=== PATIENT | male | born 1940 | race Caucasian/White ===

== ENCOUNTER 2020-11-21 09:03 | Outpatient (CLI) | payer MEDICARE ==
[~2020-11-21 09:03] MED LIST: ASCO100018 PO; ASPI-496 PO; B&C/1TAB2 PO; CARV3.1212 PO; CHOL10003 PO; CITA20TA6 PO; CYAN2000 PO; DOXY100T23 PO; FISH400C3 PO; FURO-93 PO; HYDR453.4 TP; LANS15CA5 PO; LOSA50TA14 PO; MECL-101 PO; METF1000 PO; MULT1TAB9 PO; PIOG15TA69 PO; POTA10TA5 PO; PRAV80TA2 PO; VITA1TAB38 PO; VITA400C43 PO; ZINC50TA10 PO
== END 2020-11-21 23:59 | disposition home or self-care (01) ==
LOC: WOUND 09:03
PROVIDERS: ATTEND Internal Medicine
DX: I87.331 Chronic venous hypertension (idiopathic) with ulcer and inflammation of right lower extremity (principal); E11.622 Type 2 diabetes mellitus with other skin ulcer; L97.212 Non-pressure chronic ulcer of right calf with fat layer exposed; L97.312 Non-pressure chronic ulcer of right ankle with fat layer exposed; L97.811 Non-pressure chronic ulcer of other part of right lower leg limited to breakdown of skin; I87.312 Chronic venous hypertension (idiopathic) with ulcer of left lower extremity; L97.821 Non-pressure chronic ulcer of other part of left lower leg limited to breakdown of skin; E11.22 Type 2 diabetes mellitus with diabetic chronic kidney disease; I13.0 Hypertensive heart and chronic kidney disease with heart failure and stage 1 through stage 4 chronic kidney disease, or unspecified chronic kidney disease; I50.30 Unspecified diastolic (congestive) heart failure; N18.9 Chronic kidney disease, unspecified; M19.90 Unspecified osteoarthritis, unspecified site; D61.818 Other pancytopenia; D53.9 Nutritional anemia, unspecified; N40.0 Benign prostatic hyperplasia without lower urinary tract symptoms; G43.909 Migraine, unspecified, not intractable, without status migrainosus; E66.01 Morbid (severe) obesity due to excess calories; F32.9 Major depressive disorder, single episode, unspecified; Z68.38 Body mass index [BMI] 38.0-38.9, adult; Z79.899 Other long term (current) drug therapy; Z97.4 Presence of external hearing-aid; Z98.1 Arthrodesis status; Z96.649 Presence of unspecified artificial hip joint; Z96.659 Presence of unspecified artificial knee joint
CPT/HCPCS: 29581; 97597

== ENCOUNTER 2020-11-28 10:03 | Outpatient (CLI) | payer MEDICARE | END 2020-11-28 23:59 | disposition home or self-care (01) | LOC: WOUND 10:03 | PROVIDERS: ATTEND Internal Medicine | DX: I87.331 Chronic venous hypertension (idiopathic) with ulcer and inflammation of right lower extremity (principal); E11.622 Type 2 diabetes mellitus with other skin ulcer; L97.312 Non-pressure chronic ulcer of right ankle with fat layer exposed; L97.811 Non-pressure chronic ulcer of other part of right lower leg limited to breakdown of skin; L97.212 Non-pressure chronic ulcer of right calf with fat layer exposed; I87.312 Chronic venous hypertension (idiopathic) with ulcer of left lower extremity; L97.821 Non-pressure chronic ulcer of other part of left lower leg limited to breakdown of skin; E11.22 Type 2 diabetes mellitus with diabetic chronic kidney disease; I13.0 Hypertensive heart and chronic kidney disease with heart failure and stage 1 through stage 4 chronic kidney disease, or unspecified chronic kidney disease; I50.30 Unspecified diastolic (congestive) heart failure; N18.9 Chronic kidney disease, unspecified; M19.90 Unspecified osteoarthritis, unspecified site; D61.818 Other pancytopenia; D53.9 Nutritional anemia, unspecified; N40.0 Benign prostatic hyperplasia without lower urinary tract symptoms; G43.909 Migraine, unspecified, not intractable, without status migrainosus; E66.01 Morbid (severe) obesity due to excess calories; F32.9 Major depressive disorder, single episode, unspecified; Z68.38 Body mass index [BMI] 38.0-38.9, adult; Z79.899 Other long term (current) drug therapy; Z97.4 Presence of external hearing-aid; Z98.1 Arthrodesis status; Z96.649 Presence of unspecified artificial hip joint; Z96.659 Presence of unspecified artificial knee joint | CPT/HCPCS: 97597 ==

== ENCOUNTER → 2020-12-05 | Outpatient (CLI) | payer MEDICARE | END | disposition home or self-care (01) | LOC: WOUND 11:10 | PROVIDERS: ATTEND Internal Medicine | DX: I87.333 Chronic venous hypertension (idiopathic) with ulcer and inflammation of bilateral lower extremity (principal); E11.622 Type 2 diabetes mellitus with other skin ulcer; L97.312 Non-pressure chronic ulcer of right ankle with fat layer exposed; L97.212 Non-pressure chronic ulcer of right calf with fat layer exposed; L97.821 Non-pressure chronic ulcer of other part of left lower leg limited to breakdown of skin; E11.22 Type 2 diabetes mellitus with diabetic chronic kidney disease; I13.0 Hypertensive heart and chronic kidney disease with heart failure and stage 1 through stage 4 chronic kidney disease, or unspecified chronic kidney disease; I50.30 Unspecified diastolic (congestive) heart failure; N18.9 Chronic kidney disease, unspecified; D61.818 Other pancytopenia; D53.9 Nutritional anemia, unspecified; N40.0 Benign prostatic hyperplasia without lower urinary tract symptoms; G43.909 Migraine, unspecified, not intractable, without status migrainosus; E66.01 Morbid (severe) obesity due to excess calories; F32.9 Major depressive disorder, single episode, unspecified; Z68.38 Body mass index [BMI] 38.0-38.9, adult; Z79.899 Other long term (current) drug therapy; Z97.4 Presence of external hearing-aid; Z98.1 Arthrodesis status; Z96.649 Presence of unspecified artificial hip joint; Z96.659 Presence of unspecified artificial knee joint | CPT/HCPCS: 97597 ==

== ENCOUNTER 2020-12-12 09:19 | Outpatient (CLI) | payer MEDICARE | END 2020-12-12 23:59 | disposition home or self-care (01) | LOC: WOUND 09:19 | PROVIDERS: ATTEND Internal Medicine | DX: I87.333 Chronic venous hypertension (idiopathic) with ulcer and inflammation of bilateral lower extremity (principal); E11.622 Type 2 diabetes mellitus with other skin ulcer; L97.312 Non-pressure chronic ulcer of right ankle with fat layer exposed; L97.212 Non-pressure chronic ulcer of right calf with fat layer exposed; L97.828 Non-pressure chronic ulcer of other part of left lower leg with other specified severity; E11.22 Type 2 diabetes mellitus with diabetic chronic kidney disease; I13.0 Hypertensive heart and chronic kidney disease with heart failure and stage 1 through stage 4 chronic kidney disease, or unspecified chronic kidney disease; I50.30 Unspecified diastolic (congestive) heart failure; N18.9 Chronic kidney disease, unspecified; D61.818 Other pancytopenia; D53.9 Nutritional anemia, unspecified; N40.0 Benign prostatic hyperplasia without lower urinary tract symptoms; G43.909 Migraine, unspecified, not intractable, without status migrainosus; E66.01 Morbid (severe) obesity due to excess calories; F32.9 Major depressive disorder, single episode, unspecified; Z68.38 Body mass index [BMI] 38.0-38.9, adult; Z79.899 Other long term (current) drug therapy; Z97.4 Presence of external hearing-aid; Z98.1 Arthrodesis status; Z96.649 Presence of unspecified artificial hip joint; Z96.659 Presence of unspecified artificial knee joint | CPT/HCPCS: G0463 ==

== ENCOUNTER 2021-01-10 11:48 | Inpatient (IN) | payer MEDICARE ==
[~2021-01-10] VITALS: Ht 185.4 cm; Wt 135.9 kg
--- NOTE | 2021-01-10 12:05 | NUR ---
BIB EMS FROM HOME FOR ATRAUMATIC ACUTE ON CHRONIC NECK AND BACK PAIN. HX CERVICAL AND LUMBAR FUSION. DAUGHTER REPORTS WORSENING S/S AFTER PT RECEIVED SECOND MODERNA COVID VACCINE IN NOVEMBER AND C/O DENTAL PAIN WITH MILD FEVER AT HOME. AFEBRILE IN ED. VSS. AWAITING ERP EVAL.
[2021-01-10 12:33] LABS: ALANINE AMINOTRANSFERASE 26 U/L (12-78); ALBUMIN 2.7 g/dL (3.4-5.0); ANION GAP 10 mmol/L (5-15); CHLORIDE 104 mmol/L (98-107); CREATININE 2.49 mg/dL (0.7-1.3)
[2021-01-10 12:35] LABS: ALKALINE PHOSPHATASE 136 U/L (45-117); BILIRUBIN,TOTAL 0.7 mg/dL (0.2-1.0); TOTAL PROTEIN 6.7 g/dL (6.4-8.2)
[2021-01-10 12:37] LABS: BASOPHILS % (AUTO) 1 % (0-1); EOSINOPHILS % (AUTO) 0 % (1-7); LYMPHOCYTES % (AUTO) 13 % (22-44); MEAN CORPUSCULAR HEMOGLOBIN 36.5 pg (27.5-34.5); MEAN PLATELET VOLUME 7.6 fL (7.4-10.4); MONOCYTES % (AUTO) 19 % (2-9); NEUTROPHILS % (AUTO) 67 % (42-75); RED BLOOD COUNT 2.33 x10^6/uL (4.38-5.82); RED CELL DISTRIBUTION WIDTH 16.2 % (9.4-14.8)
[2021-01-10 12:54] LABS: PLATELET COUNT 67 x10^3/uL (130-400)
[2021-01-10 12:55] LABS: ANISOCYTOSIS 1+; MD MORPH REVIEW ONLY
[2021-01-10 12:57] LABS: <PLATELET ESTIMATE> DECREASED; <PLT MORPHOLOGY> NORMAL PLT MORPH; POLYCHROMASIA 1+; STOMATOCYTES 1+
[2021-01-10] MEDS ORDERED: SODIUM CHLORIDE FLUSH 10ML SYR IVF ONE (13:00)
[2021-01-10] MEDS ORDERED: SODIUM CHLORIDE 0.9% 1,000ML IVBOLUS ONE (13:00)
--- NOTE | 2021-01-10 13:12 | NUR ---
TASK RN: IV ESTABLISHED AND FLUIDS INFUSING. PA AT BEDSIDE OBTAINING HEMOCULT SAMPLE.
--- NOTE | 2021-01-10 13:50 | NUR ---
PT AWARE OF NEED FOR UA. STATES HE IS UNABLE TO PROVIDE. IVF CONTINUES TO INFUSE
[2021-01-10] MEDS ORDERED: SUMA50TA4 PO (13:54)
[2021-01-10] MEDS ORDERED: TRAM50TA2 PO (13:54)
--- NOTE | 2021-01-10 14:27 | NUR ---
UA COLLECTED AND SENT TO LAB
[2021-01-10 14:42] LABS: MICROSCOPIC AUTO
--- NOTE | 2021-01-10 15:28 | NUR ---
REPORT TO EDER CRAWFORD
[2021-01-10] MEDS ORDERED: SODIUM CHLORIDE FLUSH 10ML SYR IVF PRN (15:30)
[2021-01-10] MEDS ORDERED: HYDROCORTISONE OINT 2.5%, 20GM TP PRN (16:30)
[2021-01-10] MEDS ORDERED: THIAMINE 200 MG in SODIUM CHLORIDE 0.9% 50 ML IV ONE (16:30)
[2021-01-10] MEDS ORDERED: PHARMACY MAY ADJ FOR RENAL FX MC PRN (16:30)
--- NOTE | 2021-01-10 16:41 | NUR ---
DAUGHTER, FEBRUARY, LEAVING AT THIS TIME. PHONE NUMBER [phone] TO CONTACT
--- NOTE | 2021-01-10 16:44 | NUR ---
PT RESTING, VSS. WAITING FOR ADMIT BED
--- NOTE | 2021-01-10 16:47 | NUR ---
PT IN IMAGING
[2021-01-10 17:37] LABS: HCT (SEDRATE) 26.2 % (39.2-51.8)
--- NOTE | 2021-01-10 18:00 | NUR ---
REPORT TO [facility]. PT READY FOR TRANSFER
[2021-01-10 18:14] LABS: C-REACTIVE PROTEIN, QUANT 8.1 mg/dL (0.02-0.49)
--- NOTE | 2021-01-10 18:46 | NUR ---
pt tofloor via tech on oxygen
[2021-01-10 20:02] VITALS: BP 124/70
[2021-01-10] MEDS: INSULIN LISPRO 100 UNITS/ML, PEN SQ-INSULIN SCH (20:12)
[2021-01-10] MEDS: CARVEDILOL 3.125 MG TABLET PO SCH (20:17)
[2021-01-10] MEDS: GABAPENTIN 250 MG/5 ML ORAL SOL PO PRN (20:23)
[2021-01-10] MEDS: NYSTATIN TOPICAL POWDER 15GM TP SCH ×2 (20:24→20:38)
[2021-01-10] MEDS: AMPICILLIN/SULBACTAM 3 GM in SODIUM CHLORIDE 0.9% 100 ML IV SCH (20:25)
[2021-01-10 21:00] VITALS: BP 128/65
[2021-01-10 22:33] VITALS: BP 129/70
[2021-01-11 01:04] VITALS: BP 117/67
[2021-01-11] MEDS: CARVEDILOL 3.125 MG TABLET PO SCH ×2 (05:48→18:29)
[2021-01-11] MEDS: NYSTATIN TOPICAL POWDER 15GM TP SCH ×4 (05:48→21:21)
[2021-01-11 06:27] VITALS: BP 146/76
[2021-01-11] MEDS: INSULIN LISPRO 100 UNITS/ML, PEN SQ-INSULIN SCH ×4 (08:00→20:05)
[2021-01-11] MEDS: AMPICILLIN/SULBACTAM 3 GM in SODIUM CHLORIDE 0.9% 100 ML IV SCH ×2 (09:24→21:21)
[2021-01-11] MEDS: CITALOPRAM 20 MG TABLET PO SCH (09:25)
[2021-01-11] MEDS: CHOLECALCIFEROL 5,000u TAB PO SCH (09:25)
[2021-01-11] MEDS: FUROSEMIDE 20 MG/2 ML IV SCH (09:25)
[2021-01-11] MEDS: MULTIVITAMINS WITH IRON TABLET PO SCH (09:25)
[2021-01-11 10:31] LABS: ABSOLUTE RETICS # 0.041 x10^6/uL (0.5-1.5); RED BLOOD COUNT 2.26 x10^6/uL (4.38-5.82); RETICULOCYTE COUNT % 1.82 % (0.5-1.5)
[2021-01-11 10:38] LABS: % IRON SATURATION 14 % (20-55); IRON LEVEL 39 mcg/dL (65-175); TOTAL IRON BINDING CAPACITY 282 mcg/dL (250-450)
[2021-01-11 11:51] VITALS: BP 143/80
[2021-01-11 18:45] VITALS: BP 132/77
[2021-01-12 02:09] VITALS: BP 147/80
[2021-01-12 05:35] VITALS: BP 130/77
[2021-01-12] MEDS: NYSTATIN TOPICAL POWDER 15GM TP SCH ×4 (05:44→20:34)
[2021-01-12] MEDS: LEVOTHYROXINE 100 MCG TABLET PO SCH (05:44)
[2021-01-12] MEDS: CARVEDILOL 3.125 MG TABLET PO SCH ×2 (05:44→17:59)
[2021-01-12 07:00] VITALS: BP 109/58
[2021-01-12] MEDS: INSULIN LISPRO 100 UNITS/ML, PEN SQ-INSULIN SCH ×4 (07:00→21:00)
[2021-01-12 09:10] VITALS: BP 152/89
[2021-01-12] MEDS: FUROSEMIDE 20 MG/2 ML IV SCH (09:31)
[2021-01-12] MEDS: CHOLECALCIFEROL 5,000u TAB PO SCH (09:32)
[2021-01-12] MEDS: IRON SUCROSE COMPLEX 100MG/5ML IV SCH (09:32)
[2021-01-12] MEDS: CITALOPRAM 20 MG TABLET PO SCH (09:32)
[2021-01-12] MEDS: MULTIVITAMINS WITH IRON TABLET PO SCH (09:32)
[2021-01-12] MEDS: AMPICILLIN/SULBACTAM 3 GM in SODIUM CHLORIDE 0.9% 100 ML IV SCH ×2 (10:03→21:03)
[2021-01-12] MEDS: GABAPENTIN 250 MG/5 ML ORAL SOL PO PRN (13:38)
[2021-01-12 14:49] VITALS: BP 119/71
[2021-01-12 19:50] VITALS: BP 133/67
[2021-01-13 01:04] VITALS: BP 133/72
[2021-01-13 06:38] VITALS: BP 138/72
[2021-01-13] MEDS: CARVEDILOL 3.125 MG TABLET PO SCH ×2 (06:40→18:23)
[2021-01-13] MEDS: NYSTATIN TOPICAL POWDER 15GM TP SCH ×4 (06:40→20:25)
[2021-01-13] MEDS: LEVOTHYROXINE 100 MCG TABLET PO SCH (06:40)
[2021-01-13] MEDS: INSULIN LISPRO 100 UNITS/ML, PEN SQ-INSULIN SCH ×4 (07:00→20:25)
[2021-01-13] MEDS: IRON SUCROSE COMPLEX 100MG/5ML IV SCH (07:44)
[2021-01-13] MEDS: FUROSEMIDE 20 MG/2 ML IV SCH (07:45)
[2021-01-13] MEDS: CITALOPRAM 20 MG TABLET PO SCH (07:45)
[2021-01-13] MEDS: CHOLECALCIFEROL 5,000u TAB PO SCH (07:45)
[2021-01-13] MEDS: MULTIVITAMINS WITH IRON TABLET PO SCH (07:45)
[2021-01-13 09:13] LABS: MEAN CORPUSCULAR HEMOGLOBIN 36.4 pg (27.5-34.5); MEAN CORPUSCULAR HGB CONC 33.4 g/dL (33.2-36.2); MEAN PLATELET VOLUME 7.2 fL (7.4-10.4); PLATELET COUNT 71 x10^3/uL (130-400); RED BLOOD COUNT 2.59 x10^6/uL (4.38-5.82); RED CELL DISTRIBUTION WIDTH 16.8 % (9.4-14.8)
[2021-01-13] MEDS ORDERED: FENTANYL PF 100 MCG/2ML ONE (09:18)
[2021-01-13] MEDS ORDERED: MIDAZOLAM 1 MG/ML, 5ML ONE (09:18)
[2021-01-13] MEDS ORDERED: NALOXONE 1 MG/ML, 2ML ONE (09:18)
[2021-01-13] MEDS ORDERED: FLUMAZENIL 0.1 MG/1 ML, 5ML ONE (09:18)
[2021-01-13 09:19] LABS: ANION GAP 7 mmol/L (5-15); CHLORIDE 106 mmol/L (98-107); CREATININE 2.41 mg/dL (0.7-1.3)
[2021-01-13 10:11] LABS: MD YES
[2021-01-13 10:13] LABS: BAND#(MANUAL) 0.05 x10^3/uL; BANDS%(MANUAL) 2 % (0-7); BASOS#(MANUAL) 0.05 x10^3/uL (0-0.1); BASOS% (MANUAL) 2 % (0-1); EOS#(MANUAL) 0.19 x10^3/uL (0.0-0.4); EOS% (MANUAL) 8 % (1-7); LYMPH#(MANUAL) 0.65 x10^3/uL (1-3.4); LYMPHS% (MANUAL) 27 % (22-44); MONOS#(MANUAL) 0.24 x10^3/uL (0.3-2.7); MONOS% (MANUAL) 10 % (2-9); SEG#(MANUAL) 1.22 x10^3/uL (1.8-6.8); SEGS% (MANUAL) 51 % (42-75)
[2021-01-13 10:14] LABS: <PLATELET ESTIMATE> DECREASED; <PLT MORPHOLOGY> NORMAL PLT MORPH; ANISOCYTOSIS 1+; POLYCHROMASIA 1+
[2021-01-13] MEDS: AMPICILLIN/SULBACTAM 3 GM in SODIUM CHLORIDE 0.9% 100 ML IV SCH ×2 (11:12→20:25)
[2021-01-13 14:26] VITALS: BP 153/85
[2021-01-13] MEDS ORDERED: LEVO100T PO (16:09)
[2021-01-13] MEDS ORDERED: GABA250S3 PO (16:09)
[2021-01-13] MEDS ORDERED: HYDR453.4 TP (16:09)
[2021-01-13] MEDS ORDERED: NYST15PO2 TP (16:09)
[2021-01-13] MEDS ORDERED: TRAM50TA2 PO (16:09)
[2021-01-13] MEDS ORDERED: AMOX1TAB64 PO (16:10)
[2021-01-13] MEDS ORDERED: FERR324T5 PO (16:28)
[2021-01-13] MEDS ORDERED: LOSA25TA25 PO (16:28)
[2021-01-13 19:02] VITALS: BP 154/94
[2021-01-14 01:00] VITALS: BP 127/72
[2021-01-14] MEDS: LEVOTHYROXINE 100 MCG TABLET PO SCH (05:51)
[2021-01-14] MEDS: CARVEDILOL 3.125 MG TABLET PO SCH (05:51)
[2021-01-14] MEDS: NYSTATIN TOPICAL POWDER 15GM TP SCH ×2 (05:51→10:45)
[2021-01-14] MEDS: INSULIN LISPRO 100 UNITS/ML, PEN SQ-INSULIN SCH ×2 (07:00→10:55)
[2021-01-14 07:10] VITALS: BP 143/74
[2021-01-14] MEDS: CITALOPRAM 20 MG TABLET PO SCH (08:17)
[2021-01-14] MEDS: IRON SUCROSE COMPLEX 100MG/5ML IV SCH (08:17)
[2021-01-14] MEDS: FUROSEMIDE 20 MG/2 ML IV SCH (08:17)
[2021-01-14] MEDS: MULTIVITAMINS WITH IRON TABLET PO SCH (08:18)
[2021-01-14] MEDS: CHOLECALCIFEROL 5,000u TAB PO SCH (08:18)
[2021-01-14] MEDS: AMPICILLIN/SULBACTAM 3 GM in SODIUM CHLORIDE 0.9% 100 ML IV SCH (08:18)
[2021-01-14 13:11] VITALS: BP 157/76
== END 2021-01-14 15:26 | DRG 291 ==
LOC: ED 12:22 → EDIP 15:23 → 4WST 18:48
PROVIDERS: ADMIT Internal Medicine; ATTEND Internal Medicine
PROC: 07DR3ZX Extraction of Iliac Bone Marrow, Percutaneous Approach, Diagnostic (ICD-10-PCS; principal; 2021-01-13)
DX: I13.0 Hypertensive heart and chronic kidney disease with heart failure and stage 1 through stage 4 chronic kidney disease, or unspecified chronic kidney disease (principal); I50.33 Acute on chronic diastolic (congestive) heart failure; F10.239 Alcohol dependence with withdrawal, unspecified; N18.4 Chronic kidney disease, stage 4 (severe); D61.818 Other pancytopenia; G89.4 Chronic pain syndrome; I35.0 Nonrheumatic aortic (valve) stenosis; K70.9 Alcoholic liver disease, unspecified; B37.2 Candidiasis of skin and nail; R62.7 Adult failure to thrive; Z86.718 Personal history of other venous thrombosis and embolism; K04.7 Periapical abscess without sinus; Z88.5 Allergy status to narcotic agent; D63.1 Anemia in chronic kidney disease; E03.9 Hypothyroidism, unspecified; E66.01 Morbid (severe) obesity due to excess calories; E11.22 Type 2 diabetes mellitus with diabetic chronic kidney disease; R53.81 Other malaise; E78.5 Hyperlipidemia, unspecified; E86.0 Dehydration; M48.02 Spinal stenosis, cervical region; M48.061 Spinal stenosis, lumbar region without neurogenic claudication; Z51.5 Encounter for palliative care; Z68.38 Body mass index [BMI] 38.0-38.9, adult; Z79.899 Other long term (current) drug therapy; Z86.73 Personal history of transient ischemic attack (TIA), and cerebral infarction without residual deficits; Z96.641 Presence of right artificial hip joint; Z96.659 Presence of unspecified artificial knee joint; Z98.1 Arthrodesis status; Z79.82 Long term (current) use of aspirin; Z79.84 Long term (current) use of oral hypoglycemic drugs
CPT/HCPCS: 36415; 38222; 70450; 70486; 71045; 72050; 72110; 72141; 72148; 77012; 80048; 80053; 80320; 81001; 82607; 82962; 83540; 83550; 84153; 84443; 85025; 85045; 85097; 85651; 86038; 86140; 86430; 87040; 88305; 88311; 88313; 93005; 93970; 96374; 99156; 99157; G0378; J0295; J1756; J2250; J3010; J3411; G0103; G0480; J1815; J1940; J2310; J7030